=== PATIENT | female | born 1985 | race Caucasian/White ===

== ENCOUNTER 2016-09-14 14:20 | Emergency (ER) | payer MEDICAID ==
[~2016-09-14] VITALS: Ht 154.9 cm; Wt 72.6 kg
[2016-09-14 14:20] VITALS: BP 123/58
[2016-09-14] MEDS ORDERED: KETOROLAC TROMETHAMINE INJ 30 MG/ML VIAL IM ONE (15:00)
[2016-09-14] MEDS ORDERED: KETOROLAC TROMETHAMINE INJ 30 MG/ML VIAL ONE (15:58)
== END 2016-09-14 16:33 | disposition home or self-care (01) ==
LOC: ER 14:23
DX: S43.402A Unspecified sprain of left shoulder joint, initial encounter (principal); Z88.0 Allergy status to penicillin; X58.XXXA Exposure to other specified factors, initial encounter; Y93.9 Activity, unspecified; Y92.9 Unspecified place or not applicable; Y99.0 Civilian activity done for income or pay
CPT/HCPCS: 73030-TC; A4606; J1885; Z7610

== ENCOUNTER 2017-02-23 17:35 | Emergency (ER) | payer MEDICAID ==
[~2017-02-23] VITALS: Ht 154.9 cm; Wt 71.2 kg
[2017-02-23 17:35] VITALS: BP 115/71
[2017-02-23] MEDS ORDERED: KETOROLAC TROMETHAMINE INJ 60 MG/2 ML VIAL IM ONE ×2 (18:00→18:04)
== END 2017-02-23 18:17 | disposition home or self-care (01) ==
LOC: ER 17:39
DX: M62.838 Other muscle spasm (principal); M54.2 Cervicalgia; G89.29 Other chronic pain; Z88.0 Allergy status to penicillin
CPT/HCPCS: A4606; J1885; Z7610

== ENCOUNTER 2018-09-17 23:21 | Emergency (ER) | payer MEDICAID ==
[~2018-09-17] VITALS: Ht 157.5 cm; Wt 74.8 kg
--- NOTE | 2018-09-17 23:48 | NUR ---
PT BIBSELF C/O LEFT FLANK PAIN X2 DAYS. PT ALSO C/O SLIGHT DYSURIA. DENIES HEMATURIA, N/V/D, ABDOMINAL PAIN, SOB, CHEST PAIN, TRAUMA. PT AAOX4. RESPIRATIONS EVEN AND UNLABORED. SKIN WARM AND INTACT. NO ACUTE DISTRESS NOTED AT THIS TIME. PT AMBULATORY WITH STEADY GAIT TO ER BED. WAITING MD EVALUATION
--- NOTE | 2018-09-17 23:50 | NUR ---
URINE COLLECTED AND SENT TO LAB
[2018-09-17 23:58] LABS: APPEARANCE,URINE Slightly Cloudy (CLEAR); BILIRUBIN,URINE SMALL (NEGATIVE); BLOOD, URINE Trace-intact Ery/uL (NEGATIVE); COLOR,URINE Yellow (YELLOW); KETONES,URINE Trace (NEGATIVE); LEUKOCYTE ESTERASE ,URINE Trace (NEGATIVE); NITRITE, URINE Negative (NEGATIVE); PROTEIN,URINE Trace mg/dl (NEGATIVE); UGLUCOSE Negative (NEGATIVE)
--- NOTE | 2018-09-18 | NUR ---
MD AT BEDSIDE FOR EVALUATION
[2018-09-18 00:22] LABS: BACTERIA,URINE Few /HPF (None Seen); SQUAMOUS EPITHELIAL CELL,UR Few /HPF (None Seen); WBC,URINE 0-2 /HPF (0-3)
[2018-09-18 00:23] LABS: MUCUS,URINE Moderate /LPF (None Seen)
--- NOTE | 2018-09-18 00:38 | NUR ---
Patient discharged to home in stable condition. Written and verbal after care instructions given. Patient verbalizes understanding of instruction. Pt ambulatory with a steady gait
[2018-09-18 00:40] VITALS: BP 127/68
== END 2018-09-18 00:41 | disposition home or self-care (01) ==
LOC: ER 23:21
DX: R30.0 Dysuria (principal); M79.18 Myalgia, other site; G89.29 Other chronic pain; Z88.0 Allergy status to penicillin
CPT/HCPCS: 81001; 84703; 99283; A4606; 81000-TC

== ENCOUNTER 2018-12-10 10:13 | Emergency (ER) | payer MEDICAID ==
[~2018-12-10] VITALS: Ht 165.1 cm; Wt 79.4 kg
[2018-12-10 10:19] VITALS: BP 109/72
--- NOTE | 2018-12-10 10:46 | NUR ---
Patient discharged to home in stable condition. Written and verbal after care instructions given. Patient verbalizes understanding of instruction.
== END 2018-12-10 10:48 | disposition home or self-care (01) ==
LOC: ER 10:15
DX: S61.031A Puncture wound without foreign body of right thumb without damage to nail, initial encounter (principal); G89.29 Other chronic pain; M54.2 Cervicalgia; Z88.0 Allergy status to penicillin; W46.0XXA Contact with hypodermic needle, initial encounter; Y93.89 Activity, other specified; Y92.89 Other specified places as the place of occurrence of the external cause; Y99.8 Other external cause status
CPT/HCPCS: 36415; 80074; 87806